=== PATIENT | male | born 1990 | race Caucasian/White ===

== ENCOUNTER 2023-11-17 17:45 | Inpatient (IN) | payer OTHER ==
[~2023-11-17] VITALS: Ht 172.7 cm; Wt 70.5 kg
[2023-11-17] MEDS ORDERED: ACET650S14 PR (20:01)
[2023-11-17] MEDS ORDERED: KETO30VI4 IM (20:01)
[2023-11-17] MEDS ORDERED: HYDROX5L PO (20:01)
[2023-11-17] MEDS ORDERED: DULO-114 PO (20:01)
[2023-11-17] MEDS ORDERED: IBUP-1506 PO (20:01)
[2023-11-17] MEDS ORDERED: BUPR1TAB32 SL (20:01)
[2023-11-17 20:28] LABS: COVID AG,FIA SOURCE NASAL SWAB
[2023-11-17] MEDS ORDERED: ONDANSETRON HCL 4 MG/2 ML VIAL IVP PRN (20:30)
[2023-11-17] MEDS ORDERED: HYDR-4527 PO (20:30)
[2023-11-17] MEDS ORDERED: SODIUM CHLORIDE 0.9% 100 ML ONE (20:43)
[2023-11-17] MEDS ORDERED: IOHEXOL 350 MG/ML 150 ML VIAL ONE (20:43)
[2023-11-17 21:07] LABS: SARS-COV2 (COVID) ANTIGEN,FIA Negative (Negative)
[2023-11-17 21:18] LABS: BASOPHILS % (AUTO) 0.5 % (0.0-2.0); EOSINOPHILS % (AUTO) 2.4 % (1.0-6.0); HEMATOCRIT 37.7 % (41-53); HEMOGLOBIN 12.6 g/dL (13.5-17.5); LYMPHOCYTES # (AUTO) 2.2 K/uL (1.0-4.8); LYMPHOCYTES % (AUTO) 42.9 % (22.0-44.0); MEAN CORPUSCULAR HEMOGLOBIN 28.7 pg (26.0-34.0); MEAN CORPUSCULAR HGB CONC 33.4 G/dL (31.0-37.0); MEAN CORPUSCULAR VOLUME 86 fL (80-100); MONOCYTES # (AUTO) 0.6 K/uL (0.1-1.0); MONOCYTES % (AUTO) 11.7 % (2.0-9.0); NEUTROPHILS # (AUTO) 2.1 K/uL (1.8-7.7); NEUTROPHILS % (AUTO) 42.5 % (40.0-70.0); PLATELET COUNT (AUTO) 222 K/uL (150-450); RED CELL DISTRIBUTION WIDTH 14.3 % (11.5-14.5)
[2023-11-17 21:28] LABS: ANION GAP 4 mmol/L (8-16); CALCIUM, TOTAL 8.7 mg/dL (8.8-10.5); CARBON DIOXIDE 32 mmol/L (22-29); CHLORIDE 106 mmol/L (98-107); CREATININE 0.76 mg/dL (0.60-1.30); GLOMERULAR FILTR. RATE CALC > 60 mL/min (>60); GLUCOSE,RANDOM 85 mg/dL (70-110); POTASSIUM 4.4 mmol/L (3.5-5.1); SODIUM SERUM 142 mmol/L (136-145); UREA NITROGEN, BLOOD 13 mg/dL (7-18)
[2023-11-17 21:36] LABS: LACTIC ACID 1.2 mmol/L (0.4-2.0)
[2023-11-17 21:43] LABS: ALCOHOL, BLOOD (SERUM) < 3 mg/dL (0-10)
[2023-11-17 21:52] LABS: ALANINE AMINOTRANSFERASE 18 U/L (12-78); ALBUMIN 3.7 g/dL (3.4-5.0); ALKALINE PHOSPHATASE 63 U/L (46-116); ASPARTATE AMINOTRANSFERASE 14 U/L (15-37); BILIRUBIN,TOTAL 0.3 mg/dL (0.1-1.0); C-REACTIVE PROTEIN QUANT 0.48 mg/dL (0.00-0.30); CREATINE KINASE, TOTAL ONLY 78 U/L (39-308); LIPASE 26 U/L (16-77); TOTAL PROTEIN, SERUM 7.1 g/dL (6.4-8.2)
[2023-11-17 21:55] LABS: ERYTHROCYTE SEDIMENTATION RATE 5 MM/HR (0-15)
[2023-11-17 23:00] VITALS: BP 114/68; PULSE 59; RESP 18; TEMP 98.1
[2023-11-18] MEDS ORDERED: PNEUMOCOCCAL VACCINE POLYVALENT 0.5 ML SYRINGE [PPSV23] IM. ONE (04:30)
[2023-11-18] MEDS: KETOROLAC TROMETHAMINE 15 MG/ML VIAL IVP PRN (04:36)
[2023-11-18 05:30] VITALS: BP 80/37; PULSE 56; RESP 18; TEMP 97.3
[2023-11-18 05:44] LABS: APPEARANCE,URINE CLEAR (CLEAR); BILIRUBIN,URINE NEGATIVE (NEGATIVE); COLOR,URINE LIGHT YELLOW (YELLOW); GLUCOSE, URINE (UA) NEGATIVE (NEGATIVE); KETONES,URINE NEGATIVE (NEGATIVE); LEUKOCYTE ESTERASE ,URINE NEGATIVE (NEGATIVE); NITRATE,URINE NEGATIVE (NEGATIVE); OCCULT BLOOD,URINE NEGATIVE (NEGATIVE); PH,URINE 7.5 (5.0-8.0); PROTEIN,URINE NEGATIVE (NEGATIVE); UROBILINOGEN,URINE <=1.0 mg/dL (<=1.0)
[2023-11-18] MEDS: SODIUM CHLORIDE 0.9% 1,000 ML IV ONE ×2 (06:44→12:10)
[2023-11-18 06:47] LABS: BASOPHILS % (AUTO) 0.5 % (0.0-2.0); EOSINOPHILS % (AUTO) 1.8 % (1.0-6.0); HEMATOCRIT 35.1 % (41-53); HEMOGLOBIN 11.9 g/dL (13.5-17.5); LYMPHOCYTES # (AUTO) 1.9 K/uL (1.0-4.8); LYMPHOCYTES % (AUTO) 48.3 % (22.0-44.0); MEAN CORPUSCULAR HEMOGLOBIN 28.8 pg (26.0-34.0); MEAN CORPUSCULAR HGB CONC 33.9 G/dL (31.0-37.0); MEAN CORPUSCULAR VOLUME 85 fL (80-100); MONOCYTES # (AUTO) 0.4 K/uL (0.1-1.0); MONOCYTES % (AUTO) 10.7 % (2.0-9.0); NEUTROPHILS # (AUTO) 1.5 K/uL (1.8-7.7); NEUTROPHILS % (AUTO) 38.7 % (40.0-70.0); PLATELET COUNT (AUTO) 197 K/uL (150-450); RED BLOOD CELL COUNT(AUTO) 4.12 MIL/uL (4.50-5.90); RED CELL DISTRIBUTION WIDTH 14.3 % (11.5-14.5); WHITE BLOOD COUNT (AUTO) 3.9 K/uL (4.5-11.0)
[2023-11-18 07:08] LABS: BACTERIA,URINE None Seen /HPF (None Seen); RBC,URINE None Seen /HPF (0-2); WBC,URINE None Seen /HPF (0-5)
[2023-11-18 07:09] LABS: ANION GAP 6 mmol/L (8-16); CALCIUM, TOTAL 8.4 mg/dL (8.8-10.5); CARBON DIOXIDE 27 mmol/L (22-29); CHLORIDE 103 mmol/L (98-107); CREATININE 0.81 mg/dL (0.60-1.30); GLOMERULAR FILTR. RATE CALC > 60 mL/min (>60); GLUCOSE,RANDOM 81 mg/dL (70-110); POTASSIUM 4.3 mmol/L (3.5-5.1); SODIUM SERUM 136 mmol/L (136-145); UREA NITROGEN, BLOOD 12 mg/dL (7-18)
[2023-11-18 08:30] VITALS: BP 110/56; PULSE 53; RESP 18; TEMP 97.4
[2023-11-18] MEDS: HEPARIN SODIUM,PORCINE 5,000 UNITS/ML VIAL SQ SCH (08:35)
[2023-11-18] MEDS: ACETAMINOPHEN 325 MG TABLET PO PRN (08:37)
[2023-11-18 09:00] VITALS: BP 85/54; PULSE 58; RESP 18; TEMP 98.1
[2023-11-18 12:00] VITALS: BP 105/57; PULSE 59; RESP 18; TEMP 98.2
[2023-11-18 18:56] VITALS: BP 108/52; PULSE 56; RESP 19; TEMP 98
[2023-11-18 20:10] VITALS: BP 93/51; PULSE 50; RESP 18; TEMP 97.7
[2023-11-19 03:52] VITALS: BP 100/48; PULSE 45; RESP 18; TEMP 97.6
[2023-11-19 08:21] VITALS: BP 101/38; PULSE 50; RESP 19; TEMP 97.9
[2023-11-19 16:43] VITALS: BP 93/50; PULSE 47; RESP 18; TEMP 98.1
[2023-11-19] MEDS: TraMADol HCL 50 MG TABLET PO PRN (20:07)
[2023-11-19 20:08] VITALS: BP 95/49; PULSE 52; RESP 20; TEMP 98.4
[2023-11-20 04:49] VITALS: BP 94/52; PULSE 63; RESP 18; TEMP 97.7
[2023-11-20 08:11] VITALS: BP 91/52; PULSE 50; RESP 18; TEMP 98.1
[2023-11-20] MEDS: SODIUM CHLORIDE 0.9% 500 ML IV ONE (12:35)
[2023-11-20 20:01] VITALS: BP 108/74; PULSE 56; RESP 19; TEMP 98
[2023-11-21 04:28] VITALS: BP 100/55; PULSE 58; RESP 18; TEMP 98
[2023-11-21 08:13] VITALS: BP 94/52; PULSE 51; RESP 18; TEMP 97.8
== END 2023-11-21 18:50 | DRG 552 ==
LOC: EMS 17:49 → 6S 20:26
PROVIDERS: ADMIT Internal Medicine; ATTEND Internal Medicine
DX: M51.35 Other intervertebral disc degeneration, thoracolumbar region (principal); E87.3 Alkalosis; D64.9 Anemia, unspecified; Z20.822 Contact with and (suspected) exposure to COVID-19; F19.10 Other psychoactive substance abuse, uncomplicated; M79.606 Pain in leg, unspecified; R32 Unspecified urinary incontinence; R15.9 Full incontinence of feces; G89.29 Other chronic pain; Z90.49 Acquired absence of other specified parts of digestive tract
CPT/HCPCS: 71045; 72129; 72132; 72141; 72146; 72148; 80048; 80053; 81001; 82140; 82550; 83605; 83690; 83735; 85025; 85651; 86140; 87040; 93005; 97163; 97165; 97530; 97535; 99285; G0480; J1644; J1885; J7030; J7040; J7050; Q9967; 36415-L1; 36415-TC

== ENCOUNTER 2023-11-30 01:29 | Emergency (ER) | payer OTHER ==
[~2023-11-30] VITALS: Ht 172.7 cm; Wt 155.0 kg
[~2023-11-30 01:29] MED LIST: ACET650S14 PR; BUPR1TAB32 SL; DULO-114 PO
[2023-11-30 01:33] VITALS: TEMP 98.1
[2023-11-30 04:48] LABS: ALANINE AMINOTRANSFERASE 16 U/L (12-78); ALBUMIN 3.6 g/dL (3.4-5.0); ALKALINE PHOSPHATASE 58 U/L (46-116); ANION GAP 10 mmol/L (8-16); ASPARTATE AMINOTRANSFERASE 18 U/L (15-37); BILIRUBIN,TOTAL 0.2 mg/dL (0.1-1.0); CALCIUM, TOTAL 8.7 mg/dL (8.8-10.5); CARBON DIOXIDE 27 mmol/L (22-29); CHLORIDE 102 mmol/L (98-107); CREATININE 0.68 mg/dL (0.60-1.30); GLOMERULAR FILTR. RATE CALC > 60 mL/min (>60); GLUCOSE,RANDOM 87 mg/dL (70-110); POTASSIUM 4.1 mmol/L (3.5-5.1); SODIUM SERUM 139 mmol/L (136-145); TOTAL PROTEIN, SERUM 7.1 g/dL (6.4-8.2); UREA NITROGEN, BLOOD 17 mg/dL (7-18)
[2023-11-30 05:05] LABS: BASOPHILS % (AUTO) 0.7 % (0.0-2.0); EOSINOPHILS % (AUTO) 2.2 % (1.0-6.0); HEMOGLOBIN 12.1 g/dL (13.5-17.5); LYMPHOCYTES # (AUTO) 2.3 K/uL (1.0-4.8); LYMPHOCYTES % (AUTO) 43.3 % (22.0-44.0); MEAN CORPUSCULAR HEMOGLOBIN 28.6 pg (26.0-34.0); MEAN CORPUSCULAR HGB CONC 33.7 G/dL (31.0-37.0); MEAN CORPUSCULAR VOLUME 85 fL (80-100); MONOCYTES # (AUTO) 0.4 K/uL (0.1-1.0); MONOCYTES % (AUTO) 7.9 % (2.0-9.0); NEUTROPHILS # (AUTO) 2.5 K/uL (1.8-7.7); NEUTROPHILS % (AUTO) 45.9 % (40.0-70.0); PLATELET COUNT (AUTO) 227 K/uL (150-450); RED BLOOD CELL COUNT(AUTO) 4.23 MIL/uL (4.50-5.90); RED CELL DISTRIBUTION WIDTH 14.2 % (11.5-14.5); WHITE BLOOD COUNT (AUTO) 5.4 K/uL (4.5-11.0)
[2023-11-30] MEDS: CYCLOBENZAPRINE HCL 10 MG TABLET PO ONE (05:23)
[2023-11-30] MEDS: KETOROLAC TROMETHAMINE 30 MG/ML VIAL IM ONE (05:24)
[2023-11-30] MEDS: LIDOCAINE 5% TRANSDERMAL PATCH TD ONE (05:28)
[2023-11-30 05:55] VITALS: BP 101/66; PULSE 57; RESP 16
== END 2023-11-30 06:56 ==
LOC: EMS 01:30
DX: M54.50 Low back pain, unspecified (principal); F17.210 Nicotine dependence, cigarettes, uncomplicated; F15.90 Other stimulant use, unspecified, uncomplicated
CPT/HCPCS: 99283; 80053; 85025; 36415; 96372; J1885